=== PATIENT | male | born 1990 | race Caucasian/White ===

== ENCOUNTER 2023-02-05 13:29 | Emergency (ER) | payer MEDICAID, OTHER ==
[~2023-02-05] VITALS: Ht 172.7 cm; Wt 82.7 kg
[2023-02-05 13:42] VITALS: TEMP 98.2
[2023-02-05 15:05] VITALS: BP 107/47; PULSE 66; RESP 16
[2023-02-05] MEDS ORDERED: IBUP-1492 PO (15:19)
== END 2023-02-05 15:36 | disposition home or self-care (01) ==
LOC: EMS 13:52
DX: H92.02 Otalgia, left ear (principal); F17.210 Nicotine dependence, cigarettes, uncomplicated; F12.90 Cannabis use, unspecified, uncomplicated; F90.9 Attention-deficit hyperactivity disorder, unspecified type
CPT/HCPCS: 99282; Z7502

== ENCOUNTER 2024-09-05 13:00 | Emergency (ER) | payer OTHER ==
[~2024-09-05] VITALS: Ht 172.7 cm; Wt 77.2 kg
[~2024-09-05 13:00] MED LIST: IBUP-1492 PO
[2024-09-05 13:29] VITALS: TEMP 97.9
[2024-09-05] MEDS: HYDROCODONE/ACETAMINOPHEN 5-325 MG TABLET PO ONE (14:52)
[2024-09-05] MEDS ORDERED: CORTSOL AS (15:08)
[2024-09-05] MEDS ORDERED: HYDR-4062 PO (15:08)
[2024-09-05] MEDS: NEOMYCIN/POLYMYXIN B/HYDROCORT 10 ML OTIC SOLUTION AU ONE (15:10)
[2024-09-05 15:19] VITALS: BP 131/87; PULSE 91; RESP 18; O2SAT 99
== END 2024-09-05 15:22 | disposition home or self-care (01) ==
LOC: EMS 13:17
DX: H60.93 Unspecified otitis externa, bilateral (principal); H92.02 Otalgia, left ear; F17.210 Nicotine dependence, cigarettes, uncomplicated; F12.90 Cannabis use, unspecified, uncomplicated; Z98.890 Other specified postprocedural states; Z79.899 Other long term (current) drug therapy
CPT/HCPCS: 99283